=== PATIENT | female | born 1985 | race Caucasian/White ===

== ENCOUNTER 2017-12-07 22:30 | Emergency (ER) | payer SELFPAY ==
[2017-12-07 22:41] VITALS: BP 125/86; PULSE 78; RESP 16; TEMP 99.1; O2SAT 100
--- NOTE | 2017-12-07 23:07 | ED PDOC ---
Arrival/HPI <Benny Shepard - Last Filed: 12/07/17 23:41> - General Historian: Patient - History of Present Illness Time/Duration: 1-3 hours Symptom Onset: Sudden Symptom Course: Unchanged Quality: Aching Activities at Onset: Rest <Emile Nleson - Last Filed: 12/08/17 00:08> - General Chief Complaint: Upper Extremity Problem/Injury Time Seen by Provider: 12/07/17 22:32 - History of Present Illness Narrative History of Present Illness (Text): 12/07/17 23:04 Patient is a 32 yo F with no significant PMH presents to the ED due to left ear pain and left shoulder pain. Patient states that pain started a few hours prior to arrival with no inciting event. Patient states that pain in left ear extends to left jaw and down the left side of her neck. Patient denies any recent sick contacts, discharge from ear, tinnitus, muffled sound, or liquid feeling in ear. Patient states that left shoulder pain is located posteriorly and hurts at rest. Patient states that pain is worsened by movements and denies any alleviating factors. Patient admits to chills and diaphoresis. Patient denies any radiation of the left shoulder pain, trauma, CP, SOB, throat pain, sinus pain/pressure, n/v/d, abdominal pain, fever, WEST, or dizziness. No PMD. (Emile Nelson) Past Medical History - Provider Review Nursing Documentation Reviewed: Yes - Psychiatric Hx Substance Use: No <Emile Nelson - Last Filed: 12/08/17 00:08> Family/Social History - Physician Review Nursing Documentation Reviewed: Yes Family/Social History: No Known Family HX Smoking Status: Never Smoked Hx Alcohol Use: No Hx Substance Use: No <Emile Nelson - Last Filed: 12/08/17 00:08> Allergies/Home Meds <Benny Shepard - Last Filed: 12/07/17 23:41> <Emile Nleson - Last Filed: 12/08/17 00:08> Allergies/Adverse Reactions: Allergies No Known Allergies Allergy (Verified 12/07/17 22:36) Review of Systems - Physician Review All systems were reviewed & negative as marked: Yes (12 point ROS reviewed and is negative other than what is stated in HPI.) <Emile Nelson - Last Filed: 12/08/17 00:08> Physical Exam Vital Signs Reviewed: Yes Temperature: Afebrile Blood Pressure: Normal Pulse: Regular Respiratory Rate: Normal Appearance: Positive for: Uncomfortable Pain Distress: Moderate Mental Status: Positive for: Alert and Oriented X 3 - Systems Exam Head: Present: Atraumatic, Normocephalic, Other (left TMJ tender) Pupils: Present: PERRL Extroacular Muscles: Present: EOMI Conjunctiva: Present: Normal Ears: Present: Normal, NORMAL TM, Normal Canal. No: Erythema, TM Bulging, Fluid , TM Perf Mouth: Present: Moist Mucous Membranes Pharnyx: Present: Normal. No: ERYTHEMA, EXUDATE, TONSILS ENLARGED Nose (Internal): Present: Normal Inspection Neck: Present: Normal Range of Motion, Other (left lateral neck TTP) Respiratory/Chest: Present: Clear to Auscultation, Good Air Exchange. No: Respiratory Distress, Accessory Muscle Use Cardiovascular: Present: Regular Rate and Rhythm, Normal S1, S2. No: Murmurs Abdomen: No: Tenderness, Distention, Peritoneal Signs Back: Present: Normal Inspection Upper Extremity: Present: Other (Left shoudler: Positive empty can test, Neer test, +pain with AROM/PROM, TTP posterior shoulder). No: Swelling Lower Extremity: Present: Normal Inspection. No: Edema Neurological: Present: GCS=15, CN II-XII Intact, Speech Normal Skin: Present: Warm, Dry, Normal Color. No: Rashes Psychiatric: Present: Alert, Oriented x 3, Normal Insight, Normal Concentration <Emile Nelson - Last Filed: 12/08/17 00:08> Vital Signs Temp Pulse Resp BP Pulse Ox 12/07/17 22:36 99.1 F 78 16 125/86 100 Medical Decision Making <Benny Shepard - Last Filed: 12/07/17 23:41> <Emile Nelson - Last Filed: 12/08/17 00:08> ED Course and Treatment: Impression: Pt seen and evaluated with medical equipment technician. Pt, with no significant past medical history, presented for left shoulder pain and left ear pain. Aware and agree with HPI, clinical findings, plan, and management. Plan: -- XR Left Shoulder -- Motrin -- Reassess and disposition (Benny Shepard) 12/07/17 23:11 32 yo F presents to ED for left ear/jaw pain and left shoulder pain. Plan: - Left shoulder xray - POC - Motrin - Reassess and disposition 12/08/17 00:06 On reassessment, patient states that pain is improved with motrin. At this time patient declines xray and would like to be discharged. Patient advised to follow up with orthopedist on discharge and was given rx for motrin to use as needed for pain. (Emile Nelson) - RAD Interpretation Radiology Orders: 12/07/17 22:53 SHOULDER LEFT [RAD] Stat - Medication Orders Current Medication Orders: Discontinued Medications Ibuprofen (Motrin Tab) 600 mg PO STAT STA Stop: 12/07/17 22:55 Last Admin: 12/07/17 23:18 Dose: 600 mg MAR Pain/Vitals Document 12/07/17 23:18 OCS (Rec: 12/07/17 23:20 OCS [id number]) Pain Reassessment Is This A Pain ReAssessment? No Sleep Is patient sleeping during reassessment? No Presence of Pain Presence of Pain Yes Pain Scale Used Pain Scale Used Numeric Location Left, Right or Bilateral Left Pain Location Body Site Shoulder Description Constant Intensity 10 Scale Used Numeric Pain Behavior Crying Facial Grimacing Aggravating Factors ADL's - PA / [employer] / Resident Statement / has reviewed & agrees with the documentation as recorded. / has examined the patient and agrees with the treatment plan. <Benny Shepard - Last Filed: 12/07/17 23:41> Disposition/Present on Arrival <Benny Shepard - Last Filed: 12/07/17 23:41> - Present on Arrival Any Indicators Present on Arrival: No History of DVT/PE: No History of Uncontrolled Diabetes: No Urinary Catheter: No History of Decub. Ulcer: No History Surgical Site Infection Following: None - Disposition Have Diagnosis and Disposition been Completed?: Yes Disposition Time: 00:08 Patient Plan: Discharge <Emile Nelson - Last Filed: 12/08/17 00:08> - Disposition Diagnosis: Rotator cuff (capsule) sprain, TMJ (temporomandibular joint syndrome) Disposition: HOME/ ROUTINE Patient Problems: Current Active Problems Problem Status Onset Rotator cuff (capsule) sprain Acute TMJ (temporomandibular joint syndrome) Acute Condition: STABLE Discharge Instructions (ExitCare): Shoulder Sprain (DC), Temporomandibular Joint (TMJ) Disorders (DC) Additional Instructions: 1. Follow up with orthopedist within 1 week 2. Take Motrin as needed for pain, take with food 3. Return to ED if symptoms worsen. SHARDA LEON, thank you for letting us take care of you today. Your provider was Benny Shepard MD and you were treated for SHOULDER PAIN. The emergency medical care you received today was directed at your acute symptoms. If you were prescribed any medication, please fill it and take as directed. It may take several days for your symptoms to resolve. Return to the Emergency Department if your symptoms worsen, do not improve, or if you have any other problems. Please contact your doctor or call one of the physicians/clinics you have been referred to that are listed on the Patient Visit Information form that is included in your discharge packet. Bring any paperwork you were given at discharge with you along with any medications you are taking to your follow up visit. Our treatment cannot replace ongoing medical care by a primary care provider outside of the emergency department. Thank you for allowing the [facility] team to be part of your care today. Prescriptions: Ibuprofen [Motrin] 600 mg PO TID #15 tab Referrals: Nick Krishna MD [Staff Provider] - Follow up with primary Forms: [employer] ([place])
== END 2017-12-08 00:04 | disposition home or self-care (01) ==
LOC: EDBD → ED 22:30
DX: M26.602 Left temporomandibular joint disorder, unspecified (principal); S43.422A Sprain of left rotator cuff capsule, initial encounter; X58.XXXA Exposure to other specified factors, initial encounter; Y92.9 Unspecified place or not applicable